=== PATIENT | male | born 1995 | race Caucasian/White ===

== ENCOUNTER 2017-07-02 14:02 | Inpatient (IN) | payer OTHER ==
[~2017-07-02] VITALS: Ht 175.3 cm; Wt 86.2 kg
[2017-07-02 14:10] VITALS: BP 123/81
--- NOTE | 2017-07-02 14:10 | NUR ---
Pre-admission Notes: Patient is seen in intake at this time. Noted patient to be alert and oriented x 4. Verbally responsive. Noted patient to be prfuse sweating, with gross tremors, nausea, vomiting. Immediately notified Dr. Rangel. Dr. Rangel, came in intake office and assessed the patient. ordered patient to have x 1 dose of Ativan 2 mg IM "STAT". VS: BP 123/81, Pulse 129, RR 22, Temp 97.9, PL 4/10. COWS 33/CIWA 39. Addendum: 07/02/17 at 1536 by DESTIN ROSA LVN Add'l Notes: Patient verbalizes that he is here from [facility] due to a seizure episode today at 0400. Patient states that he is here to detox from Heroin 1-1.5 grams daily, 10-12 mg of Xanax, 3-4 grams of methamphetamine and "8th ball" of cocaine. States that he is allergic to Haldol. And he also reports that he is also incontinent of urine.
--- NOTE | 2017-07-02 14:15 | NUR ---
Ativan 2 mg IM given: Ativan 2 mg IM administered to patient's right deltoid at this time for CIWA 39.
[2017-07-02] MEDS ORDERED: LORAZEPAM 2 MG/1 ML VIAL IM ONE ×2 (14:17→14:30)
--- NOTE | 2017-07-02 14:25 | NUR ---
Re-assessment: Patient continues to exhibit severe s/s of withdrawal. Noted with gross tremors, diaphoresis, severely anxious, agitated with moderate pupil dilation. Patient verbalizes "I am starting to see things." Notified Dr. Rangel. Patient was immediately transported up to the unit and via w/c. Placed on 1:1 due to unsteady gait, seizure precautions and high COWS/CIWA score. Bilateral siderails up and padded. Call light in reach. Escorted by male staff to his room. Addendum: 07/02/17 at 1829 by DESTIN ROSA LVN Denies S/I or H/I noted.
[2017-07-02] MEDS ORDERED: LORAZEPAM 2 MG/1 ML VIAL ONE (14:26)
[2017-07-02] MEDS ORDERED: BUPRENORPHINE HCL 2 MG TAB.SUBL SL PRN (14:30)
[2017-07-02] MEDS ORDERED: diphenhydrAMINE 50 MG CAPSULE PO PRN (14:30)
[2017-07-02] MEDS ORDERED: HYDROXYZINE PAMOATE 25 MG CAPSULE PO PRN (14:30)
[2017-07-02] MEDS ORDERED: DIAZEPAM 5 MG TABLET PO PRN (14:30)
[2017-07-02] MEDS ORDERED: LOPERAMIDE HCL 2 MG CAPSULE PO PRN ×2 (14:30)
[2017-07-02] MEDS ORDERED: IBUPROFEN 600 MG TABLET PO PRN (14:30)
[2017-07-02] MEDS ORDERED: DIAZEPAM 10 MG TABLET PO PRN ×2 (14:30)
[2017-07-02] MEDS ORDERED: ONDANSETRON 4 MG/2 ML VIAL IM PRN (14:30)
[2017-07-02] MEDS ORDERED: MIRALAX 17 GM POWD.PACK PO PRN (14:30)
[2017-07-02] MEDS ORDERED: MAG HYDROX/AL HYDROX/SIMETH 30 ML LIQUID UDC PO PRN (14:30)
[2017-07-02] MEDS ORDERED: DICYCLOMINE HCL 20 MG TABLET PO PRN (14:30)
[2017-07-02] MEDS ORDERED: ONDANSETRON ODT 4 MG TAB.RAPDIS SL PRN (14:30)
[2017-07-02] MEDS ORDERED: CLONIDINE HCL 0.1 MG TABLET PO PRN (14:30)
[2017-07-02] MEDS ORDERED: METHOCARBAMOL 750 MG TABLET PO PRN (14:30)
[2017-07-02] MEDS ORDERED: ACETAMINOPHEN 325 MG TABLET PO PRN (14:30)
--- NOTE | 2017-07-02 14:36 | NUR ---
Ativan 2 mg IM given: Ativan 2 mg IM given at this time for COWS 33/CIWA 39. Patient tolerated well. No bleeding noted on the injection site. Patient is on 1:1 at this time for safety.
[2017-07-02] MEDS ORDERED: NICOTINE POLACRILEX 4 MG GUM-PK OF TEN BC PRN (14:45)
[2017-07-02] MEDS ORDERED: NICOTINE 14 MG/24HR PATCH TD SCH (14:45)
--- NOTE | 2017-07-02 14:45 | NUR ---
Re-assessment: Ativan 2 mg IM COWS 33/CIWA 39. Noted patient with continous gross tremors, nausea, dry heaving, vomiting, profuse sweating, and verbalizing visual hallucinations. MD Rangel aware.
--- NOTE | 2017-07-02 14:49 | NUR ---
Nicotine patch given: Patient was given Nicotine patch to aid in smoking cessation. Will continue to discourage patient from smoking.
--- NOTE | 2017-07-02 15:00 | NUR ---
Behavior: Patient with COWS 33/CIWA 33. Placed on patio restrictions and 1:1 at this time. Patient non-compliant and insisted on going downstairs and demanding for extra medication. Stating "I want more to knock me out." He is noted to be verbally threathening towards staff, using foul language towards, nurse and the doctor. Patient turns on the call light, nurse answered immediately and states "What can I do to manipulate you in order for you to tell the doctor that I can smoke?" Nurse encouraged patient to comply and encouraged appropriate behavior while in the unit. But patient continues to insist on smoking despite multiple staff have discouraged him and multiple times staff have explained to him the unit's policy and procedures. Reported by BRANCH STORE MANAGER assigned to the patient, patient verbalized "I'm going to fake a seizures so I can get more Ativan." Patient then suddenly laid down with eyes closed. BRANCH STORE MANAGER checked patient's VS immediately. While BRANCH STORE MANAGER was checking patient's VS. Patient then started laughing and stated "I told you i can fake a seizure." BRANCH STORE MANAGER redirected the patient and reported to the nurse. Patient then stated "I am here to give you all hell then I will leave AMA tomorrow AM." Notified administration, , charge nurse and CANDIS.
--- NOTE | 2017-07-02 15:06 | NUR ---
Re-assessment: CIWA 33. Less nausea noted. Emesis ceased. Less sweating noted. Continues with mild visual hallucinations.
--- NOTE | 2017-07-02 15:15 | NUR ---
Wound pic: Patient continues to be uncooperative. Refuses picture on open wound to be taken at this time. Will continue to encourage the patient.
--- NOTE | 2017-07-02 15:30 | NUR ---
Admission Note: Patient is a 22 year old male who states that he is here to detox from opiates/benzo/methamphetamine and cocaine under the care of Dr. Watson Rangel. Patient is alert and oriented x 4. Able to make his needs known. Verbally responsive. Uncooperative and non-compliant with smoking cessation. Respirations even and unlabored. No SOB noted. Skin warm and wet to touch. Body check done. No contraband noted. Skin check done. Noted with right ankle open wound. Patient refuses to have area measured at this time and refuses to have a picture taken. States that he sustained the wound prior to admission, from stepping on a razor and a tetanus injection was provided. Abdomen soft and non-distended with complains of abdominal cramps, nausea, and vomiting. Denies diarrhea at this time. Patient reports that he is incontinent and uses briefs. Ambulatory ad juliann with weak and unsteady gait. Placed on a 1:1 at this time for seizure precautions, unsteady gait, strict room restrictions and elevated COWS/CIWA score. Patient states that he came from [facility] ER due to an episode of seizure of 07/02/2017 at 0400. Patient is a poor historian and inconsistent with information that he is providing. He presents with vomiting, severe tremors, sweating, nausea, stomach cramps, anxiety and agitation. He denies any past medical hx. He reports allergies to Haldol and denies having a PCP at this time. He reports that he does not recall his longest period of sobriety and is also unable to provide information regarding his last treatment history. He is unable to provide urine at this time due to the patient being incontinent. Dr. Rangel was made aware with orders to insert straight cath to to obtain urine for UDS. Substance use as ff: 1. Heroin - Smoked 1-1.5 grams of Heroin x 1 year. Last use was on 06/29/2017 2. Xanax - Orally takes 10-12 mg daily x 1 year. Last use was on 06/29/2017 3. Methamphetamine - Smokes 3-4 grams daily x 1 year. Last use was on 06/29/2017 4. Cocaine - Smokes "8th ball" daily x 1 year. Last use was on 06/29/2017 Dr. Rangel in to enter orders at this time. Addendum: 07/02/17 at 1830 by DESTIN ROSA LVN right heel open wound
[2017-07-02 16:00] VITALS: BP 130/81
[2017-07-02 17:24] LABS: BASOPHILS % (AUTO) 0.3 % (0.0-2.0); EOSINOPHILS # (AUTO) 0.1 K/uL (0.0-0.7); EOSINOPHILS % (AUTO) 0.8 % (0.0-7.0); HEMATOCRIT 46.3 % (40-50); HEMOGLOBIN 14.8 G/DL (14.0-18.0); LYMPHOCYTES # (AUTO) 1.5 K/UL (0.8-4.8); LYMPHOCYTES % (AUTO) 18.2 % (20.5-51.5); MEAN CORPUSCULAR HEMOGLOBIN 28.3 UUG (27.0-31.0); MEAN CORPUSCULAR HGB CONC 32 g/dL (32.0-37.0); MEAN CORPUSCULAR VOLUME 88.2 FL (82.0-92.0); MONOCYTES # (AUTO) 0.9 K/UL (0.1-1.30); MONOCYTES % (AUTO) 11.3 % (0.0-11.0); NEUTROPHILS # (AUTO) 5.9 K/UL (1.8-8.9); NEUTROPHILS % (AUTO) 69.4 % (38.5-71.5); PLATELET COUNT (AUTO) 281 K/UL (150-450); RED BLOOD CELL COUNT(AUTO) 5.24 MIL/UL (4.7-6.1); WHITE BLOOD COUNT (AUTO) 8.4 K/UL (4.0-11.2)
[2017-07-02 17:26] LABS: ETHANOL < 3 MG/DL (0-0)
[2017-07-02 17:31] LABS: ALANINE AMINOTRANSFERASE 20 U/L (16-63); ALKALINE PHOSPHATASE 65 U/L (50-136); ASPARTATE AMINOTRANSFERASE 16 U/L (15-37); BILIRUBIN,TOTAL 0.3 mg/dL (0.2-1.0); CARBON DIOXIDE 32 mmol/L (21-32); CHLORIDE 104 mmol/L (98-107); CREATININE 0.8 mg/dL (0.6-1.3); GLUCOSE 126 mg/dL (74-106); MAGNESIUM 1.9 mg/dL (1.8-2.4); POTASSIUM 4.3 mmol/L (3.5-5.1); TOTAL PROTEIN, SERUM 8.1 g/dL (6.4-8.2); UREA NITROGEN, BLOOD 6 mg/dL (7-18)
--- NOTE | 2017-07-02 17:37 | NUR ---
UDS: Patient is incontinent and requires to be straight catheterize to obtain urine for UDS, however patient is asleep at this time and appears sedated. VS stable.
--- NOTE | 2017-07-02 18:52 | NUR ---
End of Shift Notes: Patient is a 22 year old male admitted for opiate/BZO dependence who is on PRNs at this time. Initial COWS 33, CIWA 39. Received Ativan 2 mg IM at 1415 and at 1436 due to elevated COWS and CIWA. No adverse reactions noted. Pulse elevated to 102. MD aware. NNO made. Last COWS 20/CIWA 22. Noted patient with behavioral issues during the shift. Denies S/I or H/I. Redirected by multiple staff members. UDS still requires to be obtained at this time. Endorsed to night nurse to follow up.
--- NOTE | 2017-07-02 19:15 | NUR ---
START OF SHIFT Received 22 year old male patient admitted on 07/02/17 for Benzodiazepine, Opiate, methamphetamine and Cocaine dependency. Pt is full code with NKA. He reports a seizure in 07/02/17 at 0400. He reports using Xanax 5-6 pills 10-12 mg (smoke) daily for 1 year. Last dose was 12 mg on 06/29/17. Heroin 1-1.5 grams ( smoke) daily for 1 year. Last dose was 1.5 gram on 06/29/17. Methamphetamine 3-4 grams ( smoke) daily for 1 year. Last dose was 4 grams on 06/29/17. And Cocaine 8 ball daily for 1 year. Last dose was 8 ball on 06/29/17. Per endorsement, pt with open wound on right heel but refuses a wound picture. Pts COWS was 33 and CIWA 39 upon admission. He received Ativan IM. Pt is currently on a 1:1 and room restriction for safety. Pt currently in room sleeping comfortably. 1:1 at bedside. Breathing is even and unlabored, seizure precautions in place. Will continue to monitor.
[2017-07-02] MEDS ORDERED: BUPRENORPHINE HCL 2 MG TAB.SUBL SL SCH (21:00)
[2017-07-02] MEDS ORDERED: CARBAMAZEPINE 200 MG TABLET PO SCH (21:00)
[2017-07-02] MEDS ORDERED: DIAZEPAM 10 MG TABLET PO SCH (21:00)
--- NOTE | 2017-07-02 21:20 | NUR ---
BEHAVIOR NOTE Pt was uncooperative and refused vitals. Per ELECTRICAL DESIGN TECHNICIAN, when pt was asked to provide UDS, pt became agitated and aggressive and threw specimen cup. ELECTRICAL DESIGN TECHNICIAN redirected pt. Pt was observed to be pacing the hallway being disruptive and yelling at staff. Pt verbalized multiple times that he wanted to leave AMA. When CN asked pt to sign AMA paper pt signed "frankie burch" and DON made aware.
--- NOTE | 2017-07-02 21:35 | NUR ---
AMA NOTE Pt stated the he wanted to leave AMA d/t being on a 1:1 and room restriction. Pt educated about the risks and consequences of leaving AMA, pt verbalized understanding but still requested to leave. Multiple staff member spoke with pt without any success. VS WNL, pt denies any suicidal/homicidal ideations, skin intact. Dr. Rangel notified. Pt was given a list of community resources in case he is in need of help. All belongings returned to pt. Pt left facility on 07/02/17 at 2135.
--- NOTE | 2017-07-02 21:45 | NUR ---
AMA NOTE: AMA paperwork signed and witnessed by Dr Rangel, Charge Nurse April, WORKPLACE RELATIONS ADVISER [employer] Consultant Toni. Pt given list of community resources in case he is in need of help. Pt off hospital property at 21:45.
[2017-07-03 06:08] LABS: HEPATITIS B SURFACE AG Negative (Negative)
[2017-07-03] MEDS ORDERED: DIAZEPAM 10 MG TABLET PO SCH (09:00)
[2017-07-03] MEDS ORDERED: MULTIVITAMINS,THERAPEUTIC TABLET PO SCH (09:00)
[2017-07-03] MEDS ORDERED: TUBERCULIN,PURIF.PROT.DERIV. 5 TU/0.1 ML TEST ID ONE (09:00)
[2017-07-03] MEDS ORDERED: BUPRENORPHINE HCL 2 MG TAB.SUBL SL SCH (09:00)
[2017-07-04] MEDS ORDERED: DIAZEPAM 10 MG TABLET PO SCH (09:00)
[2017-07-04] MEDS ORDERED: BUPRENORPHINE HCL 2 MG TAB.SUBL SL SCH (09:00)
[2017-07-05] MEDS ORDERED: DIAZEPAM 5 MG TABLET PO SCH (09:00)
[2017-07-05] MEDS ORDERED: BUPRENORPHINE HCL 2 MG TAB.SUBL SL SCH ×2 (09:00→15:00)
[2017-07-06] MEDS ORDERED: DIAZEPAM 5 MG TABLET PO SCH (09:00)
[2017-07-06] MEDS ORDERED: BUPRENORPHINE HCL 2 MG TAB.SUBL SL SCH (09:00)
[2017-07-07] MEDS ORDERED: DIAZEPAM 5 MG TABLET PO SCH (09:00)
[2017-07-07] MEDS ORDERED: BUPRENORPHINE HCL 2 MG TAB.SUBL SL SCH (09:00)
== END 2017-07-02 21:35 | disposition left against medical advice (07) | DRG 894 ==
LOC: SRC 14:02
PROVIDERS: ADMIT Internal Medicine; ATTEND Internal Medicine
PROC: HZ2ZZZZ Detoxification Services for Substance Abuse Treatment (ICD-10-PCS; principal; 2017-07-02)
DX: F13.232 Sedative, hypnotic or anxiolytic dependence with withdrawal with perceptual disturbance (principal); R56.9 Unspecified convulsions; F11.23 Opioid dependence with withdrawal; F15.23 Other stimulant dependence with withdrawal; F41.9 Anxiety disorder, unspecified; F39 Unspecified mood [affective] disorder; F17.210 Nicotine dependence, cigarettes, uncomplicated; F14.23 Cocaine dependence with withdrawal; R32 Unspecified urinary incontinence
CPT/HCPCS: 36415; 83735; 85025; 86592; 86705; 86803; 87340; 87806; A4663; G0480; J2060

== ENCOUNTER 2017-07-02 23:21 | Emergency (ER) | payer OTHER ==
[~2017-07-02] VITALS: Ht 177.8 cm; Wt 86.2 kg
--- NOTE | 2017-07-02 23:37 | NUR ---
Patient is very agressive to staff verbally and physically. Attempting to throw items in the room. Security called for assistance.
--- NOTE | 2017-07-02 23:38 | NUR ---
Patient eloped from facility. ER physician , Dr Spence notified. All belongings with patient at time of elopement. patient states " Fuck you all, Fuck you for not giving me the drugs I want, You motherfuckers suck, I will go to another hospital and get drugs!". Patient eloped by foot. Peripheral IV access not present at time of elopement.
[2017-07-02] MEDS ORDERED: LORAZEPAM 2 MG/1 ML VIAL IM ONE (23:45)
[2017-07-02] MEDS ORDERED: LORAZEPAM 2 MG/1 ML VIAL ONE (23:46)
== END 2017-07-02 23:47 | disposition left against medical advice (07) ==
LOC: ER 23:22
DX: F19.10 Other psychoactive substance abuse, uncomplicated (principal); Z88.8 Allergy status to other drugs, medicaments and biological substances
CPT/HCPCS: A4663; J2060

== ENCOUNTER 2017-07-03 01:18 | Emergency (ER) | payer OTHER ==
--- NOTE | 2017-07-03 01:37 | NUR ---
Attempted to call patient into ER for triage. Patient states " I am not going back there, but I told you I can get the fire department to bring me in if I wanted ". Patient educated he was brought by [facility] for medical evaluation, patient continues to refuse triage.
--- NOTE | 2017-07-03 01:47 | NUR ---
2 attempts made by separate Rns to offer patient entry to ER and to be triaged. Patient refused on initial attempt, patient refusing to respond to nursing staff on following attempts. Unable to triage patient, patient is refusing triage at this time.
--- NOTE | 2017-07-03 01:48 | NUR ---
Last attempt to triage patient, patient continues to refuse triage. Patient states " I am going to sleep in the waiting room, and you can't stop me, fuck off!."
== END 2017-07-03 01:52 | disposition left against medical advice (07) ==
LOC: ER 01:19
DX: Z53.21 Procedure and treatment not carried out due to patient leaving prior to being seen by health care provider (principal)

== ENCOUNTER 2017-07-03 05:07 | Emergency (ER) | payer OTHER ==
[~2017-07-03] VITALS: Ht 177.8 cm; Wt 81.6 kg
--- NOTE | 2017-07-03 05:26 | NUR ---
Pt to room with security at bedside. Pt attempting to record staff and interactions with his cell phone. Pt was informed he is not allowed to record or take photos while here in the ER per hospital policy. Pt raising his voice, verbally abusive to staff and using foul language. Dr. Spence at bedside.
--- NOTE | 2017-07-03 05:26 | NUR ---
Patient is agitated, speaking in elevated voice, pacing around his room. juvenile officer Delbert outside of the room for patient safety assurance/ monitoring.
--- NOTE | 2017-07-03 05:34 | NUR ---
Patient educated to keep the door open so he can be monitored by hospital staff while in the room. Patient states " My insurance office supervisor will call you in the morning, and all of you will have no job. My mom is an anesthesiologist and my dad is a neurosurgeon. I will make sure you are all out of work tomorrow!". Patient educted the door is to remain open for his safety, and to assure that no injury occurs while in the room.
--- NOTE | 2017-07-03 05:38 | NUR ---
Xray at bedside
[2017-07-03] MEDS ORDERED: ACETAMINOPHEN ES 500 MG TABLET PO ONE (05:45)
--- NOTE | 2017-07-03 05:47 | NUR ---
Patient on the phone , stating with an elevated voice, " I will be as nice as they are mean, this is a lower end [facility]". Patient states " Half of these people working here should be admitted to a psychiatric hospital". Patient is pacing around room, patient removed his shirt.
--- NOTE | 2017-07-03 05:48 | NUR ---
Pt medicated for discomfort, will monitor for effects of medicaion.
--- NOTE | 2017-07-03 05:49 | NUR ---
Patient becoming increasingly agitated, states " I am not talking to anyone, tell her to go fuck herself". ER MD at bedside. Patient states " I am getting the fuck out of here".
[2017-07-03] MEDS ORDERED: ACETAMINOPHEN ES 500 MG TABLET ONE (05:52)
--- NOTE | 2017-07-03 05:52 | NUR ---
Patient speaking to corporate physical security supervisor Delbert, patient states "You midget, what the Fuck are you looking at "
--- NOTE | 2017-07-03 05:54 | NUR ---
Patient states " I am missing shit, That midget looked at my shit and its obvious you have to blame the short people first". Patient educated security program manager did not come into physical contact with the patients belongings. Patient now takes out his cell phone and begins to record video on his fell phone. Patient states " All of these people are horrible people, especially that four foot midget". Addendum: 07/03/17 at 0607 by JUAN Patient states " I am missing shit, That midget looked at my shit and its obvious you have to blame the short people first". Patient educated that security program manager did not come into physical contact with the patients belongings. Patient now takes out his cell phone and begins to record video on his cell phone. Patient states " All of these people are horrible people, especially that four foot midget".
--- NOTE | 2017-07-03 05:57 | NUR ---
Patient discharged to home in stable conditon. Written and verbal after care instructions given, patient refused to take ACI with him. Signature obtained.Patient verbalizes understanding of instructions. All belongings taken with patient. 2 staff supervision during dischrage , patient assured staff all belongings were on his person.
[2017-07-03 06:15] VITALS: BP 142/75
== END 2017-07-03 06:00 | disposition home or self-care (01) ==
LOC: ER 05:09
DX: S60.221A Contusion of right hand, initial encounter (principal); X58.XXXA Exposure to other specified factors, initial encounter; Y93.89 Activity, other specified; Y92.89 Other specified places as the place of occurrence of the external cause; Y99.8 Other external cause status
CPT/HCPCS: 73130; A4663